=== PATIENT | female | born 1935 | race Caucasian/White ===

== ENCOUNTER 2019-09-13 11:30 | Emergency (ER) | payer MEDICARE ==
[~2019-09-13] VITALS: Ht 162.6 cm; Wt 59.0 kg
[~2019-09-13 11:30] MED LIST: LISINOPRIL10 MG PO
[2019-09-13] MEDS ORDERED: SODIUM CHLORIDE 0.9% 1000ML 1,000 ML IV STA (11:45)
[2019-09-13] MEDS ORDERED: HYDRALAZINE HCL 20 MG/ML VIAL IV NR (11:45)
[2019-09-13 12:31] LABS: BASOPHILS # (AUTO) 0.1 (0.0-0.1); BASOPHILS % 0.9 % (0.0-1.0); EOSINOPHILS # (AUTO) 0.1 (0.0-0.4); EOSINOPHILS % 1.1 % (0.0-6.0); HEMATOCRIT 39.4 % (34.2-44.1); HEMOGLOBIN 12.5 g/dL (12.0-16.0); LYMPHOCYTES # (AUTO) 2.6 (1.0-3.2); MEAN CORPUSCULAR HEMOGLOBIN 31.5 pg (28-32); MEAN CORPUSCULAR HGB CONC 31.7 g/dL (31-35); MEAN CORPUSCULAR VOLUME 99.2 fL (81-99); MONOCYTES # (AUTO) 0.6 (0.2-0.8); MONOCYTES % 8.5 % (4.4-11.3); NEUTROPHILS # (AUTO) 4.2 (2.1-6.9); NEUTROPHILS % 55.2 % (38.7-80.0); PLATELET COUNT 225 x10e3/uL (140-360); RED BLOOD COUNT 3.97 x10e6/uL (3.6-5.1); RED CELL DISTRIBUTION WIDTH 12.5 % (11.7-14.4)
[2019-09-13 12:44] LABS: PARTIAL THROMBOPLASTIN TIME 22.7 seconds (23.8-35.5)
[2019-09-13 12:53] LABS: ALANINE AMINOTRANSFERASE 21 IU/L (0-55); ALBUMIN 3.7 g/dL (3.5-5.0); ALKALINE PHOSPHATASE 49 IU/L (40-150); ANION GAP 13.5 mmol/L (8-16); BLOOD UREA NITROGEN 20 mg/dL (7-26); BUN/CREATININE RATIO 22 (6-25); CALCIUM 9.2 mg/dL (8.4-10.2); CARBON DIOXIDE 27 mmol/L (22-29); CHLORIDE 106 mmol/L (98-107); CREATINE KINASE 72 IU/L (29-168); CREATININE, SERUM 0.92 mg/dL (0.57-1.11); EST GLOMERULAR FILTRATION RATE 58 ML/MIN (60-); GLUCOSE 96 mg/dL (74-118); POTASSIUM 4.5 mmol/L (3.5-5.1); SODIUM 142 mmol/L (136-145)
[2019-09-13 13:21] LABS: CLARITY,URINE CLEAR (CLEAR); COLOR,URINE YELLOW (YELLOW); KETONES,URINE NEGATIVE (NEGATIVE); LEUKOCYTE ESTERASE ,URINE NEGATIVE (NEGATIVE); NITRITE,URINE NEGATIVE (NEGATIVE); PROTEIN,URINE DIPSTICK NEGATIVE (NEGATIVE); URINE UROBILINOGEN 0.2 mg/dL (0.2 - 1)
[2019-09-13 13:22] LABS: BACTERIA,URINE RARE /HPF; BILIRUBIN,URINE NEGATIVE (NEGATIVE); EPITHELIAL CELLS,URINE FEW /LPF
[2019-09-13 14:20] LABS: INR 0.8; PROTHROMBIN TIME 11.5 seconds (11.9-14.5)
--- NOTE | 2019-09-13 15:23 | Diagnostic Imaging Report ---
EXAM: CTA of the Thoracoabdominal Aorta and Pelvic Arteries WITH Contrast INDICATION: ^SEVERE HTN, R/O DISSECTION COMPARISON: None. TECHNIQUE: Multi-detector CT technology was employed. CTA Gated axial imaging of the chest, abdomen, and pelvis was performed after the administration of IV contrast. Noncontrast CT of the abdomen and pelvis were also obtained. IV CONTRAST: 150 mL of Omnipaque 350 ORAL CONTRAST: None COMPLICATIONS: None RADIATION DOSE: Total DLP: 744.35 mGy*cm Estimated effective dose: (DLP x 0.015 x size factor) mSv CTDIvol has been reviewed. It is below the limits set by the Radiation Protocol Committee (RPC). For optimization of anatomic evaluation, multiplanar reconstruction, maximum intensity projections, and advanced 3-D off-line postprocessing were performed on a dedicated stand-alone workstation under the direct supervision of the interpreting physician. FINDINGS: Potential study limitations: None. LINES/ TUBES: None. VASCULAR WITH ADVANCED 3-D OFF-LINE POSTPROCESSING: Aortic valve morphology is trileaflet and contains no, mild, moderate, severe calcifications. The ascending aorta is slightly ectatic and measures 3.6 cm. The descending aorta measures 2.1 cm. Otherwise thoracic aorta is normal in course, caliber, and contour. There is no acute aortic pathology, such as dissection, intramural hematoma, or contained rupture. Aortic plaques: None. The arch vessel branching pattern is conventional. All of the arch branch vessels appear widely patent in their proximal portions. The abdominal aorta is normal in course, caliber, and contour. There is no acute aortic pathology . Aortic plaques: Moderate. The celiac axis, SMA, and DAI are patent. There are single right and accessory left renal arteries which all appear patent. The pelvic arteries are normal in caliber and contour. There are mild atherosclerotic changes of the pelvic arteries. LUNGS AND AIRWAYS: Lungs are clear. Airways are patent. PLEURA: The pleural spaces are clear.. HEART AND MEDIASTINUM: The thyroid gland is heterogeneous. No mediastinal, hilar or axillary lymphadenopathy. The main pulmonary artery is normal in size. The heart is normal in size. There is no pericardial effusion. HEPATOBILIARY: No focal hepatic lesions. No biliary ductal dilation. GALLBLADDER: No radio-opaque stones or sludge. No gallbladder wall thickening. SPLEEN: No splenomegaly. No focal splenic lesion. PANCREAS: No focal masses or ductal dilatation. ADRENALS: No adrenal nodules KIDNEYS/URETERS: Kidneys enhance symmetrically. No hydronephrosis. There are bilateral extrarenal pelvises. No cystic or solid mass lesions. No stones. GI TRACT: No abnormal distention, wall thickening, or evidence of bowel obstruction. There are diverticula within the colon without evidence of diverticulitis. PELVIC ORGANS/BLADDER: The bladder is unremarkable. LYMPH NODES: No lymphadenopathy. PERITONEUM / RETROPERITONEUM: No free air or fluid. BONES: There are degenerative changes in the spine. SOFT TISSUES: Unremarkable. IMPRESSION: 1. Slightly ectatic ascending thoracic aorta. Normal descending thoracic aorta. No evidence of dissection or saccular aneurysm. 2. Normal abdominal aorta. No acute abdominal aortic pathology. Signed by: Messi Yuan MD on 09/13/2019 3:20 PM
[2019-09-13] MEDS ORDERED: SODIUM CHLORIDE 0.9% 50ML 50 ML ONE (15:46)
[2019-09-13] MEDS ORDERED: IOPAMIDOL 370 MG/ML 200 ML INFUS..BTL INJ ONE (15:47)
[2019-09-13] MEDS ORDERED: ONDANSETRON HCL INJ 2MG/ML 2ML 2 MG/ML VIAL IV NR (16:15)
[2019-09-13] MEDS ORDERED: LIDOCAINE 4% PATCH TP ONE (16:15)
[2019-09-13 16:26] VITALS: BP 164/97
--- NOTE | 2019-09-13 16:36 | Emergency Department Note ---
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 Any updates have been documented here. Past Medical History Recent Fever: No Clinical Suspicion of Infectio: No New/Unexplained Change in Ment: No Past Medical History: Hypertension, Kidney Stones Other Surgery: hip left tendon repair Social History Smoking Cessation: Never Smoker Counseling Performed: No Alcohol Use: None Any Illegal Drug Use: No Physically hurt or threatened: No Family History Family history of heart diseas: No Other Last Tetanus: unknown Any Pre-Existing Lines (PICC,: No Review of Systems Review of Systems Constitutional: Reports no symptoms EENTM: Reports no symptoms Cardiovascular: Reports no symptoms Respiratory: Reports no symptoms Gastrointestinal: Reports no symptoms Genitourinary: Reports no symptoms Musculoskeletal: Reports as per HPI Integumentary: Reports no symptoms Neurological: Reports no symptoms Psychological: Reports no symptoms Endocrine: Reports no symptoms Hematological/Lymphatic: Reports no symptoms Physical Exam Related Data Allergies: Coded Allergies: No Known Allergies (Unverified , 03/24/15) Triage Vital Signs Vital Signs Date Time Temp Pulse Resp B/P (MAP) Pulse Ox O2 Delivery O2 Flow Rate FiO2 09/13/19 11:56 98.2 75 18 227/99 100 Vital signs reviewed: Yes Physical Exam CONSTITUTIONAL Constitutional: Present well-developed, Present well-nourished HENT HENT: Present normocephalic, Present atraumatic, Present oropharynx clear/moist, Present nose normal HENT L/R: Present left ext ear normal, Present right ext ear normal EYES Eyes: Reports PERRL, Reports conjunctivae normal NECK Neck: Present ROM normal PULMONARY Pulmonary: Present effort normal, Present breath sounds normal CARDIOVASCULAR Cardiovascular: Present regular rhythm, Present heart sounds normal, Present capillary refill normal, Present normal rate GASTROINTESTINAL Abdominal: Present soft, Present nontender; Absent left CVA tenderness, Absent right CVA tenderness GENITOURINARY Genitourinary: Present exam deferred SKIN Skin: Present warm, Present dry MUSCULOSKELETAL Musculoskeletal: Present ROM normal, Present other (no spine tenderness, right mid-lumbar paraspinal muscle spasm/tenderness) NEUROLOGICAL Neurological: Present alert, Present oriented x 3, Present no gross motor or sensory deficits PSYCHOLOGICAL Psychological: Present mood/affect normal, Present judgement normal Results Laboratory Result Diagram: 09/13/19 1154 09/13/19 1154 Laboratory Laboratory Tests Test 09/13/19 12:44 09/13/19 11:54 Urine Color Yellow (YELLOW) Urine Clarity Clear (CLEAR) Urine pH 7.5 (5 - 7) Urine Specific [place] 1.025 (1.010-1.025) Urine Protein Negative (NEGATIVE) Urine Glucose (UA) Negative (NEGATIVE) Urine Ketones Negative (NEGATIVE) Urine Blood Trace (NEGATIVE) Urine Nitrite Negative (NEGATIVE) Urine Bilirubin Negative (NEGATIVE) Urine Urobilinogen 0.2 mg/dL (0.2 - 1) Urine Leukocyte Esterase Negative (NEGATIVE) Urine RBC 6-10 /HPF (0-5) Urine WBC 6-10 /HPF (0-5) Urine Epithelial Cells Few /LPF (NONE) Urine Bacteria Rare /HPF (NONE) White Blood Count 7.53 x10e3/uL (4.8-10.8) Red Blood Count 3.97 x10e6/uL (3.6-5.1) Hemoglobin 12.5 g/dL (12.0-16.0) Hematocrit 39.4 % (34.2-44.1) Mean Corpuscular Volume 99.2 fL (81-99) Mean Corpuscular Hemoglobin 31.5 pg (28-32) Mean Corpuscular Hemoglobin Concent 31.7 g/dL (31-35) Red Cell Distribution Width 12.5 % (11.7-14.4) Platelet Count 225 x10e3/uL (140-360) Neutrophils (%) (Auto) 55.2 % (38.7-80.0) Lymphocytes (%) (Auto) 34.0 % (18.0-39.1) Monocytes (%) (Auto) 8.5 % (4.4-11.3) Eosinophils (%) (Auto) 1.1 % (0.0-6.0) Basophils (%) (Auto) 0.9 % (0.0-1.0) Neutrophils # (Auto) 4.2 (2.1-6.9) Lymphocytes # (Auto) 2.6 (1.0-3.2) Monocytes # (Auto) 0.6 (0.2-0.8) Eosinophils # (Auto) 0.1 (0.0-0.4) Basophils # (Auto) 0.1 (0.0-0.1) Absolute Immature Granulocyte (auto 0.02 x10e3/uL (0-0.1) Prothrombin Time 11.5 seconds (11.9-14.5) Prothromb Time International Ratio 0.80 Activated Partial Thromboplast Time 22.7 seconds (23.8-35.5) Sodium Level 142 mmol/L (136-145) Potassium Level 4.5 mmol/L (3.5-5.1) Chloride Level 106 mmol/L (98-107) Carbon Dioxide Level 27 mmol/L (22-29) Anion Gap 13.5 mmol/L (8-16) Blood Urea Nitrogen 20 mg/dL (7-26) Creatinine 0.92 mg/dL (0.57-1.11) Estimat Glomerular Filtration Rate 58 ML/MIN (60-) BUN/Creatinine Ratio 22 (6-25) Glucose Level 96 mg/dL (74-118) Calcium Level 9.2 mg/dL (8.4-10.2) Total Bilirubin 0.3 mg/dL (0.2-1.2) Aspartate Amino Transf (AST/SGOT) 30 IU/L (5-34) Alanine Aminotransferase (ALT/SGPT) 21 IU/L (0-55) Alkaline Phosphatase 49 IU/L (40-150) Creatine Kinase 72 IU/L (29-168) Creatine Kinase MB 1.10 ng/mL (0-5.0) Troponin I < 0.001 ng/mL (0-0.300) Total Protein 7.4 g/dL (6.5-8.1) Albumin 3.7 g/dL (3.5-5.0) Globulin 3.7 g/dL (2.3-3.5) Albumin/Globulin Ratio 1.0 (0.8-2.0) Lab results reviewed: Yes Imaging Imaging results reviewed: Yes Impressions Procedure: [id number] CT/CTA CHEST and ABDOMEN Exam Date: 09/13/19 Exam Time: 1340 REPORT STATUS: Signed EXAM: CTA of the Thoracoabdominal Aorta and Pelvic Arteries WITH Contrast INDICATION: ^SEVERE HTN, R/O DISSECTION COMPARISON: None. TECHNIQUE: Multi-detector CT technology was employed. CTA Gated axial imaging of the chest, abdomen, and pelvis was performed after the administration of IV contrast. Noncontrast CT of the abdomen and pelvis were also obtained. IV CONTRAST: 150 mL of Omnipaque 350 ORAL CONTRAST: None COMPLICATIONS: None RADIATION DOSE: Total DLP: 744.35 mGy*cm Estimated effective dose: (DLP x 0.015 x size factor) mSv CTDIvol has been reviewed. It is below the limits set by the Radiation Protocol Committee (RPC). For optimization of anatomic evaluation, multiplanar reconstruction, maximum intensity projections, and advanced 3-D off-line postprocessing were performed on a dedicated stand-alone workstation under the direct supervision of the interpreting physician. FINDINGS: Potential study limitations: None. LINES/ TUBES: None. VASCULAR WITH ADVANCED 3-D OFF-LINE POSTPROCESSING: Aortic valve morphology is trileaflet and contains no, mild, moderate, severe calcifications. The ascending aorta is slightly ectatic and measures 3.6 cm. The descending aorta measures 2.1 cm. Otherwise thoracic aorta is normal in course, caliber, and contour. There is no acute aortic pathology, such as dissection, intramural hematoma, or contained rupture. Aortic plaques: None. The arch vessel branching pattern is conventional. All of the arch branch vessels appear widely patent in their proximal portions. The abdominal aorta is normal in course, caliber, and contour. There is no acute aortic pathology . Aortic plaques: Moderate. The celiac axis, SMA, and DAI are patent. There are single right and accessory left renal arteries which all appear patent. The pelvic arteries are normal in caliber and contour. There are mild atherosclerotic changes of the pelvic arteries. LUNGS AND AIRWAYS: Lungs are clear. Airways are patent. PLEURA: The pleural spaces are clear.. HEART AND MEDIASTINUM: The thyroid gland is heterogeneous. No mediastinal, hilar or axillary lymphadenopathy. The main pulmonary artery is normal in size. The heart is normal in size. There is no pericardial effusion. HEPATOBILIARY: No focal hepatic lesions. No biliary ductal dilation. GALLBLADDER: No radio-opaque stones or sludge. No gallbladder wall thickening. SPLEEN: No splenomegaly. No focal splenic lesion. PANCREAS: No focal masses or ductal dilatation. ADRENALS: No adrenal nodules KIDNEYS/URETERS: Kidneys enhance symmetrically. No hydronephrosis. There are bilateral extrarenal pelvises. No cystic or solid mass lesions. No stones. GI TRACT: No abnormal distention, wall thickening, or evidence of bowel obstruction. There are diverticula within the colon without evidence of diverticulitis. PELVIC ORGANS/BLADDER: The bladder is unremarkable. LYMPH NODES: No lymphadenopathy. PERITONEUM / RETROPERITONEUM: No free air or fluid. BONES: There are degenerative changes in the spine. SOFT TISSUES: Unremarkable. IMPRESSION: 1. Slightly ectatic ascending thoracic aorta. Normal descending thoracic aorta. No evidence of dissection or saccular aneurysm. 2. Normal abdominal aorta. No acute abdominal aortic pathology. Signed by: Messi Yuan MD on 09/13/2019 3:20 PM Procedures 12 Lead ECG Interpretation ECG Interpretation : ECG: ECG 1 [employer]arel Manufacture Instructor: Interpreted by ED physician Date: Sep 13, 2019 Time: 11:49 Rhythm: sinus rhythm Rate: normal (64) QRS axis: normal ST segments normal: Yes T waves normal: Yes Clinical Impression: abnormal ECG (POOR RWP) Assessment & Plan Medical Decision Making MDM ELEVATED BP AND BACK PAIN - CHECK CBC, CHEM, UA/CX, ECG, CARDIAC MARKERS, CT CHEST/ABD/PELVIS - R/O AORTIC ANEURYSM/DISSECTION, STEMI/NSTEMI, UTI, NEPHROLITHIASIS, RENAL INSUFF, MUSCULOSKELETAL Reassessment Reassessment PT BP IMPROVED, FEELS BETTER WITH LIDODERM. DC HOME WITH LIDODERM, MACROBID, ZOFRAN ODT Assessment & Plan Final Impression: (1) Lumbar strain (2) UTI (urinary tract infection) Depart Disposition: HOME, SELF-CARE Last Vital Signs Date Time Temp Pulse Resp B/P (MAP) Pulse Ox O2 Delivery O2 Flow Rate FiO2 09/13/19 14:58 69 16 146/66 100 09/13/19 11:56 98.2 Home Meds Reported Medications Lisinopril (LISINOPRIL) 10 Mg Tablet, 10 MG PO DAILY, #30 TAB 03/24/15 Medications in the ED Sodium Chloride 1,000 ml @ 0 mls/hr Q0M STAT IV Last administered on 09/13/19at 13:00; Admin Dose 999 MLS/HR; Start 09/13/19 at 11:45; Stop 09/13/19 at 11:49; Status DC Hydralazine HCl 5 mg ONCE IV Last administered on 09/13/19at 13:02; Admin Dose 5 MG; Start 09/13/19 at 11:45; Stop 09/13/19 at 12:59; Status DC Sodium Chloride 50 ml @ ud STK-MED ONCE .ROUTE ; Start 09/13/19 at 15:46; Stop 09/13/19 at 15:40; Status DC Iopamidol 74,000 mg STK-MED ONCE INJ ; Start 09/13/19 at 15:47; Stop 09/13/19 at 15:41; Status DC Ondansetron HCl 4 mg NOW IV Last administered on 09/13/19at 16:20; Admin Dose 4 MG; Start 09/13/19 at 16:15; Stop 09/13/19 at 17:59 Lidocaine 1 ea NOW ONCE TP Last administered on 09/13/19at 16:22; Admin Dose 1 EA; Start 09/13/19 at 16:15; Stop 09/13/19 at 16:16; Status DC PABLO COX MD Sep 13, 2019 16:36
== END 2019-09-13 16:53 | disposition home or self-care (01) ==
LOC: ER 11:48
DX: S39.012A Strain of muscle, fascia and tendon of lower back, initial encounter (principal); N39.0 Urinary tract infection, site not specified; I10 Essential (primary) hypertension; R94.31 Abnormal electrocardiogram [ECG] [EKG]; Z87.442 Personal history of urinary calculi
CPT/HCPCS: 36415; 71275; 74174; 80053; 81001; 82550; 82553; 84484; 85025; 85610; 85730; 87086; 99284; J0360; J7030; Q9967